=== PATIENT | female | born 1960 | race Caucasian/White ===

== ENCOUNTER → 2021-03-01 | Emergency (ER) | payer BC ==
[~2021-03-01] VITALS: Ht 172.7 cm; Wt 85.8 kg
[~2021-03-01] MED LIST: IV NORMAL SALINE 1,000ML 1,000 ML IV ONE; IV NORMAL SALINE 50ML 50 ML ONE; MORPHINE SULFATE 4 MG/ML DISP.SYRIN. IV ONE; ONDANSETRON PF 4 MG/2 ML VIAL. IVP ONE; PIPERACILLIN/TAZOBACTAM 3.375 GM VIAL IV ONE; PIPERACILLIN/TAZOBACTAM 3.375 GM in IV NORMAL SALINE 50ML 50 ML IV ONE
--- NOTE | 2021-03-01 13:53 | EKG ---
[address] [address] Test Date: 2021-03-01 Test Time: 13:35:04 Pat Name: ZOE RAMESH Department: Room: Gender: F Electric [employer]: LUIS : 1960 Requested By: MIKA DELUCA Order Number: [id number] Reading MD: Samuel Colindres MD Measurements Intervals [place] Rate: 118 P: 26 [place]: 182 QRS: 14 QRSD: 86 T: 57 QT: 308 QTc: 434 Interpretive Statements SINUS TACHYCARDIA NON-SPECIFIC ST/T CHANGES Electronically Signed On 03-01-2021 14:57:01 CDT by Samuel Colindres MD
--- NOTE | 2021-03-01 13:58 | PHYS DOC ---
Past History Past Surgical History: Cholecystectomy, Hysterectomy Additional Past Surgical Histo: heart cath (MIKA DELUCA APRN) Alcohol Use: Rarely (MIKA DELUCA APRN) General Adult EDM: Chief Complaint: ABDOMINAL PAIN HPI: HPI: Patient is a 60-year-old female presents with right upper quadrant pain, nausea/vomiting/diarrhea since yesterday evening. Patient describes pain as a sharp, continuous, crampy. Denies taking anything prior to arrival for pain. "I have not been able to keep anything down because I cannot quit vomiting." Afebrile. (MIKA DELUCA APRN) Review of Systems: Review of Systems: Constitutional: Denies fever or chills Eyes: Denies change in visual acuity HENT: Denies nasal congestion or sore throat Respiratory: Denies cough or shortness of breath Cardiovascular: Denies chest pain or edema GI: Reports right upper quadrant abdominal pain, nausea, vomiting, diarrhea. : Denies dysuria Musculoskeletal: Denies back pain or joint pain Integument: Denies rash Neurologic: Denies headache, focal weakness or sensory changes Endocrine: Denies polyuria or polydipsia Lymphatic: Denies swollen glands Psychiatric: Denies depression or anxiety (MIKA DELUCA APRN) Current Medications: Current Meds: Current Medications Medications (Trade) Dose Ordered Sig/Iris Start Time Stop Time Status Last Admin Dose Admin Morphine Sulfate (Morphine 4mg Syringe) 4 mg 1X ONCE 03/01/21 13:30 03/01/21 13:43 DC Ondansetron HCl (Zofran) 4 mg 1X ONCE 03/01/21 13:30 03/01/21 13:43 DC Sodium Chloride 1,000 ml @ 1,000 mls/hr 1X ONCE 03/01/21 13:30 03/01/21 14:29 (MIKA DELUCA APRN) Allergies: Allergies: Allergies Coded Allergies Type Severity Reaction Last Updated Verified No Known Drug Allergies 03/01/21 No (MIKA DELUCA APRN) Physical Exam: PE: Constitutional: Well developed, well nourished, no acute distress, non-toxic appearance. [] HENT: Normocephalic, atraumatic, bilateral external ears normal, oropharynx moist, no oral exudates, nose normal. [] Eyes: PERRLA, EOMI, conjunctiva normal, no discharge. [] Neck: Normal range of motion, no tenderness, supple, no stridor. [] Cardiovascular:Heart rate regular rhythm, no murmur [] Lungs & Thorax: Bilateral breath sounds clear to auscultation [] Abdomen: Bowel sounds normal, soft, no tenderness, no masses, no pulsatile masses. [] Skin: Warm, dry, no erythema, no rash. [] Back: No tenderness, no CVA tenderness. [] Extremities: No tenderness, no cyanosis, no clubbing, ROM intact, no edema. [] Neurologic: Alert and oriented X 3, normal motor function, normal sensory function, no focal deficits noted. [] Psychologic: Affect normal, judgement normal, mood normal. [] (MIKA DELUCA APRN) Current Patient Data: Vital Signs: Vital Signs Date Time Temp Pulse Resp B/P (MAP) Pulse Ox O2 Delivery O2 Flow Rate FiO2 03/01/21 13:15 98.3 121 16 152/130 (137) 98 Room Air (MIKA DELUCA APRN) EKG: EKG: [] (MIKA DELUCA APRN) Radiology/Procedures: Radiology/Procedures: [] INDICATION: Reason: right side pain / Spl. Instructions: / History: COMPARISON: None. FINDINGS: Single view of chest obtained. Linear opacities at lung bases. Degenerative changes the spine. Cardiac silhouette unremarkable. Calcified granulomas. IMPRESSION: * Linear opacities at the lung bases could be from scarring or atelectasis. Electronically signed by: Nelson Avelar MD (03/01/2021 1:57 PM) [id number] CT scan abdomen and pelvis without contrast 03/01/2021 CLINICAL HISTORY: Right upper quadrant abdominal pain. TECHNIQUE: Unenhanced, contiguous, 3 mm axial sections were obtained through the abdomen and pelvis. One or more of the following individualized dose reduction techniques were utilized for this study: 1. Automated exposure control. 2. Adjustment of the mA and/or kV according to patient size. 3. Use of iterative reconstruction technique. FINDINGS: No previous studies are available for comparison. Images through the lung bases demonstrate minimal dependent subsegmental atelectasis bilaterally. The liver, spleen, adrenal glands and kidneys are within normal limits. Atherosclerotic calcification abdominal aorta is seen. The abdominal aorta tapers normally. Surgical clips are seen within the gallbladder fossa consistent with a cholecystectomy. No free fluid or free air is seen within the abdomen. There is no evidence of bowel obstruction. The appendix is well-visualized and is within normal limits. A somewhat oval-shaped masslike area with increased attenuation which is felt to most likely representing a hematoma is seen inferior to the head of the pancreas. A portion of this extends anteriorly into the right pancreatic head. This measures 15.8 x 7.8 x 6.7 cm in transverse, craniocaudal and AP dimensions. The body/tail of pancreas is within normal limits. Fullness of the head of the right pancreas is seen. Increased density is seen within the adjacent fat. These findings be seen with acute pancreatitis. Clinical correlation is recommended. This hematoma could reflect hemorrhagic pancreatitis. No additional abnormal fluid collection is seen. Images through pelvis demonstrate the urinary bladder to be slightly contracted. Calcifications are seen within the pelvis consistent with phleboliths. The patient appears to be post hysterectomy. No adnexal mass is seen. A moderate amount of free fluid is seen within the pelvis. Minimal S-shaped curvature of the thoracolumbar spine is seen. Degenerative changes are seen involving the lower thoracic and throughout the lumbar spine along with both hips. IMPRESSION: 15.8 cm hematoma is seen inferior to the head of the pancreas which could be seen with hemorrhagic pancreatitis. Clinical correlation is recommended. In the absence of pancreatitis, this could reflect hemorrhage related to an underlying mass lesion. Electronically signed by: Kd Smith MD (03/01/2021 2:29 PM) [id number] (MIKA DELUCA APRN) Heart Score: C/O Chest Pain: No Risk Factors: Risk Factors: DM, Current or recent (<one month) smoker, HTN, HLP, family history of CAD, obesity. Risk Scores: Score 0 - 3: 2.5% MACE over next 6 weeks - Discharge Home Score 4 - 6: 20.3% MACE over next 6 weeks - Admit for Clinical Observation Score 7 - 10: 72.7% MACE over next 6 weeks - Early Invasive Strategies (MIKA DELUCA APRN) Course & Med Decision Making: Course & Med Decision Making Pertinent Labs and Imaging studies reviewed. (See chart for details) [] 60-year-old female presents with right upper quadrant pain, nausea and vomiting since yesterday. Patient given Zofran, morphine. Upon reassessment, patient states her pain is controlled. WBCs, 20.1. CT abdomen pelvis shows 15.3 centimeters hematoma to head of pancreas. Patient denies recent trauma to her abdomen or history of pancreatitis. All other labs are unremarkable. Lipase, 70. Chest x-ray is unremarkable. Consulted Dr. Parks at [facility]. Dr. Parks recommended patient be admitted for consult. Discussed case with Dr. De La Cruz, who will be accepting patient at [facility]. Patient started on Zosyn due to elevated WBC. Patient's urine is positive for leuks and nitrates. Discussed results with patient. Informed patient that she would need to be transferred to [facility] for surgeon consult. Patient is appreciative and agrees to transfer and admission plan. (MIKA DELUCA APRN) Course & Med Decision Making I have participated in the care of this patient and I have reviewed and agree with all pertinent clinical information above including history, exam, and recommendations. Esau Castañeda DO (ESAU CASTAÑEDA DO) German Disclaimer: German Disclaimer: This electronic medical record was generated, in whole or in part, using a voice recognition dictation system. (MIKA DELUCA APRN) Departure Departure: Referrals: PCP,JORGE ALBERTO (PCP) MIKA DELUCA APRN Mar 01, 2021 13:58 ESAU CASTAÑEDA DO Mar 04, 2021 00:31
[2021-03-01 14:20] LABS: BASO # 0.1 x10^3/uL (0.0-0.2); BASO % 1 % (0-3); EOS % 0 % (0-3); HEMATOCRIT 37.7 % (36.0-47.0); HEMOGLOBIN 12.7 g/dL (12.0-15.5); LYMPH # 3.3 x10^3/uL (1.0-4.8); LYMPH % 16 % (24-48); MEAN CORPUSCULAR HEMOGLOBIN 31 pg (25-35); MEAN CORPUSCULAR HGB CONC 34 g/dL (31-37); MEAN CORPUSCULAR VOLUME 92 fL (79-100); MONO # 1.4 x10^3/uL (0.0-1.1); MONO % 7 % (0-9); NEUT # 15.3 x10^3uL (1.8-7.7); NEUT % 76 % (31-73); PLATELET COUNT 421 x10^3/uL (140-400); RED BLOOD COUNT 4.09 x10^6/uL (3.50-5.40); WHITE BLOOD COUNT 20.1 x10^3/uL (4.0-11.0)
--- NOTE | 2021-03-01 14:31 | RAD ---
CT scan abdomen and pelvis without contrast 03/01/2021 CLINICAL HISTORY: Right upper quadrant abdominal pain. TECHNIQUE: Unenhanced, contiguous, 3 mm axial sections were obtained through the abdomen and pelvis. One or more of the following individualized dose reduction techniques were utilized for this study: 1. Automated exposure control. 2. Adjustment of the mA and/or kV according to patient size. 3. Use of iterative reconstruction technique. FINDINGS: No previous studies are available for comparison. Images through the lung bases demonstrate minimal dependent subsegmental atelectasis bilaterally. The liver, spleen, adrenal glands and kidneys are within normal limits. Atherosclerotic calcification abdominal aorta is seen. The abdominal aorta tapers normally. Surgical clips are seen within the gallbladder fossa consistent with a cholecystectomy. No free fluid or free air is seen within the abdomen. There is no evidence of bowel obstruction. The appendix is well-visua lized and is within normal limits. A somewhat oval-shaped masslike area with increased attenuation which is felt to most likely represen ting a hematoma is seen inferior to the head of the pancreas. A portion of this extends anteriorly in to the right pancreatic head. This measures 15.8 x 7.8 x 6.7 cm in transverse, craniocaudal and AP di mensions. The body/tail of pancreas is within normal limits. Fullness of the head of the right pancre as is seen. Increased density is seen within the adjacent fat. These findings be seen with acute panc reatitis. Clinical correlation is recommended. This hematoma could reflect hemorrhagic pancreatitis. No additional abnormal fluid collection is seen. Images through pelvis demonstrate the urinary bladder to be slightly contracted. Calcifications are s een within the pelvis consistent with phleboliths. The patient appears to be post hysterectomy. No ad nexal mass is seen. A moderate amount of free fluid is seen within the pelvis. Minimal S-shaped curvature of the thoracolumbar spine is seen. Degenerative changes are seen involvin g the lower thoracic and throughout the lumbar spine along with both hips. IMPRESSION: 15.8 cm hematoma is seen inferior to the head of the pancreas which could be seen with he morrhagic pancreatitis. Clinical correlation is recommended. In the absence of pancreatitis, this cou ld reflect hemorrhage related to an underlying mass lesion. Electronically signed by: Kd Smith MD (03/01/2021 2:29 PM) [id number]
[2021-03-01 14:45] LABS: CALCIUM 9.5 mg/dL (8.5-10.1); CREATININE 0.8 mg/dL (0.6-1.0); GFR 73.4; POTASSIUM 3.5 mmol/L (3.5-5.1)
[2021-03-01 14:48] LABS: ALBUMIN 3.9 g/dL (3.4-5.0); TOTAL BILIRUBIN 0.5 mg/dL (0.2-1.0); TOTAL PROTEIN 7.8 g/dL (6.4-8.2)
[2021-03-01 15:20] LABS: % LYMPHS 18 % (24-48); % MONOS 7 % (0-10); % SEGS 75 % (35-66)
[2021-03-01 15:21] LABS: PLT ESTIMATE ADEQUATE (ADEQUATE)
[2021-03-01 15:40] LABS: BILIRUBIN,URINE SMALL (NEG); CLARITY,URINE CLOUDY; COLOR,URINE YELLOW; GLUCOSE,URINE NEG (NEG); NITRITE,URINE POS (NEG); UROBILINOGEN,URINE 0.2 mg/dL (0.2 mg/dL)
[2021-03-01 15:41] LABS: BACTERIA,URINE MANY /HPF (0-FEW); HYALINE CASTS, URINE FEW /HPF; SQUAMOUS EPITHELIAL CELL,UR MOD /LPF
[2021-03-01 16:54] VITALS: BP 147/82
== END ==
LOC: ER 12:42
DX: R10.11 Right upper quadrant pain (principal); R11.2 Nausea with vomiting, unspecified; R19.7 Diarrhea, unspecified; Z90.49 Acquired absence of other specified parts of digestive tract; Z90.710 Acquired absence of both cervix and uterus
CPT/HCPCS: 36415; 71045; 74176; 80053; 81001; 83690; 85007; 85025; 87086; 93005; 99285-25